=== PATIENT | male | born 1995 | race African-American/Black ===

== ENCOUNTER 2016-04-25 15:50 | Emergency (ER) | payer BC ==
[~2016-04-25] VITALS: Ht 162.6 cm; Wt 113.2 kg
[2016-04-25 16:04] VITALS: TEMP 36.9; Ht 162.6 cm; Wt 113.2 kg
[2016-04-25] MEDS ORDERED: SODIUM CHLORIDE 0.9% 1000ML 1,000 ML IV STA (17:54)
[2016-04-25] MEDS ORDERED: ACET-1256 PO (17:55)
[2016-04-25] MEDS ORDERED: PANTOprazole INJ 40 MG in SYRINGE 0 ML IV ONE (18:00)
[2016-04-25 18:17] LABS: HEMATOCRIT 38.9 % (42-52); MEAN CELL VOLUME 81.2 fL (80-100); MEAN CORPUSCULAR HEMOGLOBIN 30.1 pg (25-34); MEAN PLATELET VOLUME 11.9 fL (7.4-10.4); PLATELET COUNT 162 K/uL (130-400); RED BLOOD COUNT 4.79 M/uL (4.7-6.1); WHITE BLOOD COUNT 4.56 K/uL (4.8-10.8)
[2016-04-25 18:27] LABS: INR 1.1 (0.9-1.1); PROTHROMBIN TIME (PATIENT) 11.8 SECONDS (9.0-12.0)
[2016-04-25 18:40] LABS: ALT/SGPT 21 U/L (12-78); BLOOD UREA NITROGEN 9 mg/dl (7-18); BUN/CREATININE RATIO 13.4 (10-20); CARBON DIOXIDE 25 mmol/L (21-32); CHLORIDE 107 mmol/L (98-107); CREATININE 0.65 mg/dl (0.60-1.40); GLUCOSE 90 mg/dl (70-99); POTASSIUM 3.8 mmol/L (3.5-5.1); SODIUM 143 mmol/L (136-145)
[2016-04-25 18:43] LABS: ALB/GLOB RATIO 1.1 (0.9-2); ALKALINE PHOSPHATASE 79 U/L (45-117); AST/SGOT 20 U/L (15-37)
--- NOTE | 2016-04-25 18:44 | DIAGNOSTIC IMAGING REPORT ---
ABDOMEN 2VIEW W/PA CHEST RTN CLINICAL HISTORY: hematemesis dyspnea COMPARISON STUDY: No previous studies for comparison. FINDINGS: The soft tissues, psoas shadows, renal outlines and intestinal gas pattern appear normal. There is no evidence for bowel obstruction. There is no evidence for free intraperitoneal air. No abnormal abdominal calcifications are seen. A frontal view of the chest was performed and is unremarkable. IMPRESSION: Normal study. Electronically signed by: Jean-Pierre Terrell M.D. 04/25/2016 6:43 PM Dictated Date/Time: 04/25/2016 6:42 PM
[2016-04-25 19:09] VITALS: BP 123/72; PULSE 55; O2SAT 97
[2016-04-25] MEDS ORDERED: OMEP40CA41 PO (19:27)
--- NOTE | 2016-04-25 19:28 | EMERGENCY ROOM VISIT NOTE ---
History First contact with patient: 17:26 Chief Complaint: NAUSEA Stated Complaint: NAUSEA Nursing Triage Summary: pt reports after participating in a bar crawl 1 day ago noticed blood in vomit last night and this AM last vomitted around 1000, + po intake with no difficultis History of Present Illness Patient is a 20-year-old -[place] male who presents emergency department for evaluation of vomiting last night and this morning with associated hematemesis. Patient admits to drinking moderately yesterday on a bar to work. He states that he went home, and went to bed. He woke up around midnight and felt nauseous and made himself vomit. He threw up again about 2 hours later and noted streaks of bright red blood. He went back to bed. When he woke up this morning he vomited again twice, round 0 700 and last at 0 900 which again was mostly clear with streaks of bright red blood. Subsequent to that, he went to work. He noted some slight epigastric discomfort, but states that he has had this on and off for several weeks and was not particularly bothered by the discomfort. He left work to come to the emergency department, but prior to that stopped and ate at an restaurant. He ate about an hour prior to arrival in the emergency department, and at the present time has no complaints. He rates his abdominal pain a 0/10. He reports that he moved his bowels early this morning and it was normal and formed without melena or hematochezia. He denies any significant GI history including ulcer disease or reflux. He denies any chest pain, palpitations or shortness of breath. Review of Systems Review of systems as per HPI. All other systems reviewed were negative. 10 systems reviewed. Past Medical/Surgical History Medical Problems: (1) No Known Active Medical Problems Social History Smoking Status: Never Smoker Alcohol Use: occasionally Housing Status: lives with roommate Occupation Status: employed, [employer] student Current/Historical Medications Scheduled Omeprazole (Prilosec), 1 CAP PO DAILY Scheduled PRN Acetaminophen (Tylenol), 2 TAB PO Q6 PRN for Pain Allergies Coded Allergies: No Known Allergies (Unverified , 04/25/16) Physical Exam Vital Signs Date Time Temp Pulse Resp B/P Pulse Ox O2 Delivery O2 Flow Rate FiO2 04/25/16 19:09 55 18 123/72 97 Room Air 04/25/16 18:12 64 16 142/70 98 Room Air 04/25/16 16:04 36.9 77 18 130/76 99 Room Air Physical Exam CONSTITUTIONAL: Patient is a well-appearing 20-year-old -[place] male who is awake and alert and in no acute distress. EYES: Pupils equal, round, reactive to light and accommodation. EOMs intact without nystagmus. Sclera are anicteric. ENT: Tympanic membranes intact, with normal landmarks. External canals are clear. Oral and nasopharynx are clear. Mucous membranes are moist, no lesions , tongue and gums appear normal. NECK: No bruits auscultated. Supple without lymphadenopathy. No thyromegaly. No meningeal signs. Full active range of motion without discomfort. CARDIOVASCULAR: Regular rate and rhythm, with normal S1 and S2, no murmur or gallop or rub is heard. No carotid bruits auscultated. No JVD. Peripheral pulses easy to palpable. RESPIRATORY: Breath sounds equal and clear to auscultation without wheezes, rales, or rhonchi heard. Full and equal chest expansion without accessory muscle use or retractions. GI: Bowel sounds are present. Abdomen is soft, nondistended, very slightly tender to palpation in the epigastric region. There is no pain in the right upper quadrant. No pain in the right lower quadrant over McBurney's point. Negative Courtney sign. No guarding or rebound. MUSCULOSKELETAL: Full range of motion of extremities x 4 with good strength. No cyanosis, edema, joint tenderness or swelling. No deformity. INTEGUMENTARY: No lesions or rash, normal skin turgor. NEUROLOGICAL: Alert, oriented, and cooperative. Cranial nerves, sensation and strength grossly intact. Pupils round, equal, and react to light, EOMs are full. LYMPH: No lymphadenopathy. Medical Decision & Procedures ER Provider Diagnostic Interpretation: ABDOMEN 2VIEW W/PA CHEST RTN CLINICAL HISTORY: hematemesis dyspnea COMPARISON STUDY: No previous studies for comparison. FINDINGS: The soft tissues, psoas shadows, renal outlines and intestinal gas pattern appear normal. There is no evidence for bowel obstruction. There is no evidence for free intraperitoneal air. No abnormal abdominal calcifications are seen. A frontal view of the chest was performed and is unremarkable. IMPRESSION: Normal study. Laboratory Results 04/25/16 18:05 04/25/16 18:05 Test 04/25/16 18:05 Red Blood Count 4.79 M/uL (4.7-6.1) Mean Corpuscular Volume 81.2 fL (80-100) Mean Corpuscular Hemoglobin 30.1 pg (25-34) Mean Corpuscular Hemoglobin Concent 37.0 g/dl (32-36) RDW Standard Deviation 44.9 fL (36.4-46.3) RDW Coefficient of Variation 15.2 % (11.5-14.5) Mean Platelet Volume 11.9 fL (7.4-10.4) Prothrombin Time 11.8 SECONDS (9.0-12.0) Prothromb Time International Ratio 1.1 (0.9-1.1) Activated Partial Thromboplast Time 26.8 SECONDS (21.0-31.0) Partial Thromboplastin Ratio 1.0 Anion Gap 11.0 mmol/L (3-11) Est Creatinine Clear Calc Drug Dose 205.5 ml/min Estimated GFR () > 150.0 Estimated GFR (Non- 139.1 BUN/Creatinine Ratio 13.4 (10-20) Calcium Level 9.0 mg/dl (8.5-10.1) Total Bilirubin 1.1 mg/dl (0.2-1) Aspartate Amino Transf (AST/SGOT) 20 U/L (15-37) Alanine Aminotransferase (ALT/SGPT) 21 U/L (12-78) Alkaline Phosphatase 79 U/L (45-117) Total Protein 7.4 gm/dl (6.4-8.2) Albumin 3.9 gm/dl (3.4-5.0) Globulin 3.5 gm/dl (2.5-4.0) Albumin/Globulin Ratio 1.1 (0.9-2) Lipase 70 U/L (73-393) Medications Administered Medications (Trade) Dose Ordered Sig/Joselin Route Start Time Stop Time Status Last Admin Dose Admin Sodium Chloride 1,000 ml @ 999 mls/hr Q1H1M STAT IV 04/25/16 17:54 04/25/16 18:54 DC 04/25/16 18:13 999 MLS/HR Pantoprazole Sodium/Syringe (Protonix Inj/ Syringe) 10 ml @ 5 mls/min NOW ONCE IV 04/25/16 18:00 04/25/16 18:01 DC 04/25/16 18:13 5 MLS/MIN ED Course The patient was seen and evaluated as above. He reported no discomfort at the time of his exam. IV access was obtained. Patient was hydrated with normal saline solution and medicated with Protonix 40 mg IV push. CBC with, coags, CMP , lipase and urine dip were performed. Laboratory studies revealed a white count of 4500, H&H 14.4 and 38.9. Platelet count is 162,000. PT/PTT/INR are within normal limits. Electrolytes and renal functions are normal. Slight elevation of his total bilirubin, transaminases and lipase are within normal limits. Urine dip was clear. Acute abdominal series was normal. Laboratory and diagnostic imaging studies were reviewed with attending physician. The patient was reassured. Differential diagnosis includes gastritis, [place]-Naidu tear, PUD, GERD, esophageal rupture/perforation, Boerhaave's syndrome, among others. The patient has had no further vomiting, no further hematemesis. He tolerated a full meal prior to coming to the emergency department. He was reassured. He was placed on a prescription for Prilosec. He was encouraged to avoid alcohol consumption and NSAIDs. He was discharged to home in good condition. He rated his pain a 0/10 at discharge. Medical Decision See ED course Impression Primary Impression: Vomiting blood Departure Information Prescriptions Omeprazole (PRILOSEC) 40 Mg Cap 1 CAP PO DAILY for 30 Days, #30 CAP 3 Refills Prov: Hayde Velazquez PA 04/25/16 Referrals No Doctor, Assigned (PCP) Patient Instructions [facility] Additional Instructions You were evaluated today for intestinal bleeding. Your doctor did not find any serious cause to warrant an admission to the hospital. It is not uncommon for minor bleeding to be discharged for outpatient testing and follow up visits. Prilosec 40 m tablet daily. Clear liquid diet, advance as tolerated. Continue current medications. Refrain from alcohol consumption. Avoid NSAIDs. Return to the ER immediately for abdominal pain, black or worsening bloody stool , passing out or feeling like you may pass out, vomiting, fevers, chest pains, difficulty breathing, worsening of your condition, or as needed. Follow up with [facility] this week for a recheck of your current condition.
== END 2016-04-25 19:38 | disposition home or self-care (01) ==
LOC: C.EDB 15:51 → C.EDC 19:38
DX: K92.0 Hematemesis (principal)